=== PATIENT | female | born 1960 | race Caucasian/White ===

== ENCOUNTER 2016-11-20 18:32 | Emergency (ER) | payer MEDICAID ==
[~2016-11-20] VITALS: Ht 149.9 cm; Wt 55.0 kg
[2016-11-20 18:32] VITALS: BP 109/77; PULSE 60; RESP 18; TEMP 97.7; O2SAT 95
[~2016-11-20 18:32] MED LIST: CELE40TA PO; DICL75 PO; METO50TA PO; PENI500T PO
[2016-11-20] MEDS ORDERED: METO50TA PO (19:33)
--- NOTE | 2016-11-20 19:58 | RADRPT ---
EXAM DATE/TIME: 11/20/2016 19:58 [facility] COMPARISON: No previous studies available for comparison. INDICATIONS : Right forearm pain, fell MEDICAL HISTORY : None. SURGICAL HISTORY : None. ENCOUNTER: Initial ACUITY: 1 day PAIN SCORE: 10/10 LOCATION: Left Forearm FINDINGS: There is no acute fracture or subluxation of the right radius or ulna. On old fracture is seen of the ulnar styloid. Soft tissues are within normal limits. No radiopaque foreign body. CONCLUSION: No acute bony normality. Old ulnar styloid fracture. Justin Hall MD on November 20, 2016 at 19:55 Board Certified Radiologist. This report was verified electronically.
[2016-11-20] MEDS ORDERED: IBUP800T23 PO (20:35)
[2016-11-20] MEDS ORDERED: HYDR-3533 PO (20:53)
--- NOTE | 2016-11-20 20:53 | PD ---
HPI Chief Complaint: Fall Time Seen by Provider: 20:43 Travel History International Travel<30 days: No Contact w/Intl Traveler<30days: No Traveled to known affect area: No History of Present Illness HPI 56-year-old [id number] white female presents to emergency department for evaluation of right arm pain after a fall. She states that she had fallen several hours ago onto her right elbow. She states that she had pain in the elbow initially but now is radiating up into her wrist and thumb. She denies any numbness, tingling. She states that she feels weak because of pain. When she fell she did scrape her right knee. No neck or back pain. No other injuries. PFSH Past Medical History Arthritis: Yes Autoimmune Disease: Yes (NATHANIEL) Cardiovascular Problems: Yes (HTN) Hypertension: Yes Tetanus Vaccination: Unknown ?: Not Social History Alcohol Use: No Tobacco Use: No Substance Use: No Allergies-Medications (Allergen,Severity, Reaction): Coded Allergies: Sulfa (Verified Allergy, Severe, RASH, 11/20/16) Reported Meds & Prescriptions Reported Meds & Active Scripts Active Ibuprofen 800 Mg Tab 800 Mg PO Q8H PRN Reported Metoprolol Tartrate 50 Mg Tab 50 Mg PO BID Review of Systems Except as stated in HPI: all other systems reviewed are Neg General / Constitutional: No: Fever, Chills Eyes: No: Blurred Vision, Photophobia HENT: No: Headaches, Sore Throat Cardiovascular: No: Chest Pain or Discomfort, Palpitations Respiratory: No: Cough, Shortness of Breath Gastrointestinal: No: Nausea, Vomiting Genitourinary: No: Urgency, Frequency, Dysuria Musculoskeletal: Positive: Myalgias (no known for emergencies or 11 blade 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 seeming no time in time and have her) , Arthralgias, Limited ROM, Weakness, Pain Skin: No Rash, No Itching Physical Exam Narrative GENERAL: Well-developed, well-nourished in no apparent distress. Nontoxic appearing. HEAD: Normocephalic, atraumatic. EYES: Pupils equal round and reactive. Extraocular motions intact. No scleral icterus. No injection or drainage. ENT: Nose clear. Throat without erythema, tonsillar hypertrophy or exudate. Uvula midline. Airway patent. NECK: Trachea midline. Supple, nontender, moves head freely. No central bony tenderness or spasm. CARDIOVASCULAR: Regular rate and rhythm without murmurs, gallops, or rubs. RESPIRATORY: Clear to auscultation. Breath sounds equal bilaterally. No wheezes , rales, or rhonchi. GASTROINTESTINAL: Abdomen soft, non-tender, nondistended. No hepato-splenomegaly , or palpable masses. No guarding. EXTREMITIES: No clubbing, cyanosis. Examination of the right upper extremity reveals pain in the elbow at the area of the radius. She has significant decreased range of motion, global pain and swelling. She is unable to fully extend or fully flex her elbow. She has pain with supination and pronation. She has radiation of pain down the forearm to the wrist. There is tenderness over the distal radius and ulna. No anatomical snuffbox tenderness. Some pain down into the thumb. She has intact gross sensation and good pulses. The left upper extremity is unremarkable. The left lower extremity is unremarkable. The right lower extremity has an abrasion over the patella and some crepitus with movement but no instability. BACK: Nontender without deformity. No flank tenderness. NEUROLOGICAL: Awake, alert and oriented x 3 .Cranial nerves grossly intact. Motor and sensory grossly within normal limits. Normal speech. Data Data Last Documented VS Vital Signs Date Time Temp Pulse Resp B/P Pulse Ox O2 Delivery O2 Flow Rate FiO2 11/20/16 18:32 97.7 60 18 109/77 95 Room Air Orders Forearm (2vws) (11/20/16 19:35) Splint Or Brace Apply/Monitor (11/20/16 20:33) [facility] Medical Decision Making Medical Screen Exam Complete: Yes Emergency Medical Condition: Yes Medical Record Reviewed: Yes Interpretation(s) Last 24 hours Impressions Radius/Ulna X-Ray 11/20/161934 Signed Impressions: Service Date/Time: Sunday, November 20, 2016 19:58 - CONCLUSION: No acute bony normality. Old ulnar styloid fracture. Justin Hall MD Differential Diagnosis MDM: High Differential diagnoses: Fracture, sprain, strain, dislocation, contusion, neurovascular injury Narrative Course X-ray of the right elbow reveals a positive fat pad signs I suspect she has a radial head fracture which is nonvisualized. The radiologist has read the x- ray is negative. This is right radial head fracture Patient given Motrin 800 and Lortab 5 mg by mouth. Sling. Diagnosis Primary Impression: Right radial head fracture Qualified Code: S52.124A - Closed nondisplaced fracture of head of right radius, initial encounter Patient Instructions: General Instructions, Narcotic given in the ED Additional Instructions: Rest. Sling. Ice. Motrin and Lortab. Follow-up with your doctor in the next 2-3 days. Follow-up with an orthopedist within 1 week. Med/Other Pt SpecificInfo: Prescription(s) given Scripts Ibuprofen 800 Mg Ned615 Mg PO Q8H PRN (Pain/Inflammation) #30 TAB Prov:Vinod Damon MD 11/20/16 Disposition: 01 DISCHARGE HOME Condition: Stable Oj Deutsch Nov 20, 2016 20:53
[2016-11-20] MEDS ORDERED: IBUPROFEN 800 MG TAB PO ONE (21:00)
[2016-11-20] MEDS ORDERED: ACETAMINOPHEN/HYDROcodone 325 MG/5 MG TAB PO ONE (21:00)
== END 2016-11-20 21:13 | disposition home or self-care (01) ==
LOC: NEPB 18:32
DX: S52.121A Displaced fracture of head of right radius, initial encounter for closed fracture (principal); I10 Essential (primary) hypertension; W19.XXXA Unspecified fall, initial encounter
CPT/HCPCS: 73090; 99284

== ENCOUNTER 2017-12-11 19:26 | Emergency (ER) | payer MEDICAID ==
[~2017-12-11] VITALS: Ht 152.4 cm; Wt 66.0 kg
[~2017-12-11 19:26] MED LIST changes: -CELE40TA PO; -DICL75 PO; +HYDR-3533 PO; +IBUP1TAB7 PO; -PENI500T PO
[2017-12-11 19:49] VITALS: PULSE 68; RESP 22; TEMP 97.7; O2SAT 96
--- NOTE | 2017-12-11 20:02 | PD ---
HPI Chief Complaint: Chest Pain Time Seen by Provider: 20:00 Travel History International Travel<30 days: No Contact w/Intl Traveler<30days: No Traveled to known affect area: No History of Present Illness HPI Over the past 4 days patient has had progressive shortness of breath, midsternal chest discomfort, nonradiating, rates it at about a 6 out of 10 described as sharp. No alleviating factors however is aggravated by movement and taking deep breaths. Patient denies any associated factors such as fever, headache, back pain, abdominal pain, nausea, vomiting, diarrhea. Primary care is Dr. Belcher Patient states allergies to sulfa Past medical history significant for previous hypertension bronchitis unknown if this is a COPD subtype or just an intermittent. Hypertension, hiatal hernia , lupus, states that she has bad knees and uses a cane to ambulate around. PFSH Past Medical History Arthritis: Yes Autoimmune Disease: Yes (NATHANIEL) Cardiovascular Problems: Yes (HTN) Cerebrovascular Accident: Yes Diminished Hearing: No Hiatal Hernia: Yes Hypertension: Yes Respiratory: Yes (bronchitis) Influenza Vaccination: No ?: Unknown Menopausal: Yes : 1 Para: 1 Past Surgical History Surgical History: No Previous Surgery Social History Alcohol Use: No Tobacco Use: No Substance Use: No Allergies-Medications (Allergen,Severity, Reaction): Coded Allergies: Sulfa (Sulfonamide Antibiotics) (Unverified Allergy, Severe, RASH, 05/15/17 ) Reported Meds & Prescriptions Reported Meds & Active Scripts Active Reported Gabapentin 600 Mg Tab 600 Mg PO TID Xanax (Alprazolam) 0.5 Mg Tab 0.5 Mg PO Q8H PRN Zantac (Ranitidine HCl) 150 Mg Tab 150 Mg PO DAILY Citalopram (Citalopram Hydrobromide) 40 Mg Tab 40 Mg PO DAILY Topiramate ER (Topiramate) 50 Mg Cap 50 Mg PO DAILY Metoprolol Tartrate 50 Mg Tab 50 Mg PO BID Review of Systems General / Constitutional: No: Fever Eyes: No: Visual changes HENT: No: Headaches Cardiovascular: Positive: Chest Pain or Discomfort Respiratory: Positive: Shortness of Breath Gastrointestinal: No: Abdominal Pain Genitourinary: No: Dysuria Musculoskeletal: No: Pain Skin: No Rash Neurologic: No: Weakness Psychiatric: No: Depression Endocrine: No: Polydipsia Hematologic/Lymphatic: No: Easy Bruising Physical Exam Narrative GENERAL: SKIN: Warm and dry. HEAD: Atraumatic. Normocephalic. EYES: Pupils equal and round. No scleral icterus. No injection or drainage. ENT: No nasal bleeding or discharge. Mucous membranes pink and moist. NECK: Trachea midline. No JVD. CARDIOVASCULAR: Regular rate and rhythm. RESPIRATORY: No accessory muscle use. Clear to auscultation. But patient has a croupy type cough. With some stridor with activity. No stridor at rest, no nasal flaring, no tripoding. GASTROINTESTINAL: Abdomen soft, non-tender, nondistended. MUSCULOSKELETAL: Extremities without clubbing, cyanosis, or edema. No obvious deformities. Reproducible chest wall pain on palpation NEUROLOGICAL: Awake and alert. No obvious cranial nerve deficits. Motor grossly within normal limits. Five out of 5 muscle strength in the arms and legs. Normal speech. PSYCHIATRIC: Appropriate mood and affect; insight and judgment normal. Data Data Last Documented VS Vital Signs Date Time Temp Pulse Resp B/P (MAP) Pulse Ox O2 Delivery O2 Flow Rate FiO2 12/11/17 21:26 98.0 69 18 101/68 (79) 96 Room Air Orders Orders Electrocardiogram (12/11/17 ) Ckmb (Isoenzyme) Profile (12/11/17 19:43) Complete Blood Count With Diff (12/11/17 19:43) Comprehensive Metabolic Panel (12/11/17 19:43) Magnesium (Mg) (12/11/17 19:43) Prothrombin Time / Inr (Pt) (12/11/17 19:43) Act Partial Throm Time (Ptt) (12/11/17 19:43) Troponin I (12/11/17 19:43) Lipase (12/11/17 19:43) Chest, Pa & Lat (12/11/17 19:43) Racemic Epinephrine 2.25% Neb (Racepinep (12/11/17 20:45) Methylprednisolone So Succ Inj (Solumedr (12/11/17 20:45) Influenzae A/B Antigen (12/11/17 20:35) Sodium Chlor 0.9% 1000 Ml Inj (Ns 1000 M (12/11/17 21:28) Sodium Chlor 0.9% 1000 Ml Inj (Ns 1000 M (12/11/17 22:15) Labs Laboratory Tests Test 12/11/17 20:00 White Blood Count 4.4 TH/MM3 Red Blood Count 4.56 MIL/MM3 Hemoglobin 13.8 GM/DL Hematocrit 41.4 % Mean Corpuscular Volume 90.8 FL Mean Corpuscular Hemoglobin 30.3 PG Mean Corpuscular Hemoglobin Concent 33.4 % Red Cell Distribution Width 13.8 % Platelet Count 177 TH/MM3 Mean Platelet Volume 7.7 FL Neutrophils (%) (Auto) 58.4 % Lymphocytes (%) (Auto) 26.5 % Monocytes (%) (Auto) 14.0 % Eosinophils (%) (Auto) 0.3 % Basophils (%) (Auto) 0.8 % Neutrophils # (Auto) 2.6 TH/MM3 Lymphocytes # (Auto) 1.2 TH/MM3 Monocytes # (Auto) 0.6 TH/MM3 Eosinophils # (Auto) 0.0 TH/MM3 Basophils # (Auto) 0.0 TH/MM3 CBC Comment DIFF FINAL Differential Comment Prothrombin Time 10.1 SEC Prothromb Time International Ratio 1.0 RATIO Activated Partial Thromboplast Time 27.3 SEC Blood Urea Nitrogen 16 MG/DL Creatinine 1.24 MG/DL Random Glucose 83 MG/DL Total Protein 8.2 GM/DL Albumin 4.0 GM/DL Calcium Level 8.7 MG/DL Magnesium Level 2.1 MG/DL Alkaline Phosphatase 61 U/L Aspartate Amino Transf (AST/SGOT) 21 U/L Alanine Aminotransferase (ALT/SGPT) 25 U/L Total Bilirubin 0.3 MG/DL Sodium Level 129 MEQ/L Potassium Level 3.1 MEQ/L Chloride Level 97 MEQ/L Carbon Dioxide Level 24.6 MEQ/L Anion Gap 7 MEQ/L Estimat Glomerular Filtration Rate 44 ML/MIN Total Creatine Kinase 54 U/L Troponin I LESS THAN 0.02 NG/ML Lipase 173 U/L MDM Medical Decision Making Medical Screen Exam Complete: Yes Emergency Medical Condition: Yes Medical Record Reviewed: Yes Interpretation(s) EKG shows a normal sinus rhythm, 62 bpm, the pattern is most consistent with little bit of pulmonary disease with a small P pulmonale noted. No evidence of any STEMI pattern noted. Differential Diagnosis WA versus non-STEMI versus pneumonia versus clubbing, bronchitis versus flu Narrative Course Patient has CBC shows no leukocytosis, normal no anemia, normal platelet count, no left shift. Coagulation profile is within normal limits Electrolytes shows slight hyponatremia 129, mild hypo-kalemia 3.1, prerenal azotemia with creatinine of 1.24 and a GFR of 44. However normal LFTs normal lipase and normal troponin as well as normal total CPK. Negative flu Chest x-ray was read as no evidence of acute cardiopulmonary disease by radiologist. Patient feels much better after receiving racemic epi, as her cough sounded more similar to croup rather than that of pneumonia. However she also had in addition to stridor she had wheezing. Which makes it likely that there is also not only upper airway but also lower airway disease. Of particular note the patient has no hypoxemia, has excellent Pleth wave, 99% on room air which is considered absolutely normal for pulse ox on room air. Respiratory rate was not elevated at between 12-14, heart rate was 75, and blood pressure was 141/81. Patient is in no acute respiratory distress and will be discharged after treatment Diagnosis Primary Impression: CLINICAL BRONCHITIS Additional Impression: Hyponatremia Patient Instructions: Acute Bronchitis (ED), General Instructions Scripts Albuterol 6.7 GM Inh (Proventil Hfa 6.7 GM Inh) 90 Mcg/Act Aer 2 PUFF INH Q4-6H Y for SHORTNESS OF BREATH, #1 INHALER 0 Refills Prov: Bolivar Torres MD 12/11/17 Guaifenesin-Codeine Liq (Guaifenesin AC Liq) 100-10 Mg/5 Ml Syrp 10 ML PO Q4H Y for COUGH, #180 BOTTLE 0 Refills Prov: Bolivar Torres MD 12/11/17 Ciprofloxacin (Cipro) 500 Mg Tab 500 MG PO BID for Infection for 5 Days, #10 TAB 0 Refills Prov: Bolivar Torres MD 12/11/17 Disposition: 01 DISCHARGE HOME Condition: Stable Bolivar Torres MD Dec 11, 2017 20:02
[2017-12-11] MEDS ORDERED: CITA40TA4 PO (20:03)
[2017-12-11] MEDS ORDERED: ALPR.5 PO (20:03)
[2017-12-11] MEDS ORDERED: ZANT150T2 PO (20:03)
[2017-12-11] MEDS ORDERED: GABA600T PO (20:03)
[2017-12-11] MEDS ORDERED: TOPI1CAP18 PO (20:03)
[2017-12-11 20:34] LABS: AUTOMATED NEUTROPHIL # 2.6 TH/MM3 (1.8-7.7); BASOPHIL % 0.8 % (0.0-2.0); EOSINOPHIL % 0.3 % (0.0-4.0); HEMATOCRIT 41.4 % (35.0-46.0); HEMOGLOBIN 13.8 GM/DL (11.6-15.3); LYMPH % 26.5 % (9.0-44.0); LYMPHOCYTE # 1.2 TH/MM3 (1.0-4.8); MEAN CELL VOLUME 90.8 FL (80.0-100.0); MEAN CORPUSCULAR HEMOGLOBIN 30.3 PG (27.0-34.0); MEAN CORPUSCULAR HGB CONC 33.4 % (32.0-36.0); MEAN PLATELET VOLUME 7.7 FL (7.0-11.0); MONOCYTE # 0.6 TH/MM3 (0-0.9); NEUT % 58.4 % (16.0-70.0); PLATELET COUNT 177 TH/MM3 (150-450); RED BLOOD COUNT 4.56 MIL/MM3 (4.00-5.30); RED CELL DISTRIBUTION WIDTH 13.8 % (11.6-17.2); WHITE BLOOD COUNT 4.4 TH/MM3 (4.0-11.0)
[2017-12-11 20:36] LABS: AST (GOT) 21 U/L (15-37); BICARBONATE 24.6 MEQ/L (21.0-32.0); BLOOD UREA NITROGEN 16 MG/DL (7-18); CALCIUM 8.7 MG/DL (8.5-10.1); CHLORIDE 97 MEQ/L (98-107); CREATININE 1.24 MG/DL (0.50-1.00); GLOMERULAR FILTRATION RATE 44 ML/MIN (>89); GLUCOSE,RANDOM 83 MG/DL (74-106); MAGNESIUM 2.1 MG/DL (1.5-2.5); PROTHROMBIN TIME - PATIENT 10.1 SEC (9.8-11.6); SODIUM (NA) 129 MEQ/L (136-145)
[2017-12-11 20:38] LABS: ALT (GPT) 25 U/L (10-53)
[2017-12-11 20:42] LABS: ALKALINE PHOSPHATASE 61 U/L (45-117); TOTAL BILIRUBIN ADULT 0.3 MG/DL (0.2-1.0); TOTAL PROTEIN 8.2 GM/DL (6.4-8.2); TROPONIN I LESS THAN 0.02 NG/ML (0.02-0.05)
[2017-12-11] MEDS ORDERED: RESP: RACEPINEPHRINE 2.25% 0.5 ML NEB NEB ONE (20:45)
[2017-12-11] MEDS ORDERED: methylPREDNISolone SOD SUCC 125 MG/2 ML VIAL IV PUSH ONE (20:45)
--- NOTE | 2017-12-11 21:08 | RADRPT ---
EXAM DATE/TIME: 12/11/2017 20:40 [facility] COMPARISON: No previous studies available for comparison. INDICATIONS : Chest pain and cough. MEDICAL HISTORY : None. SURGICAL HISTORY : None. ENCOUNTER: Initial ACUITY: 1 day PAIN SCORE: 5/10 LOCATION: Bilateral chest FINDINGS: PA and lateral views of the chest demonstrate the lungs to be symmetrically aerated without evidence of mass, infiltrate or effusion. The cardiomediastinal contours are unremarkable. Osseous structure s are intact. CONCLUSION: No evidence of acute cardiopulmonary disease. Justin Hall MD on December 11, 2017 at 21:06 Board Certified Radiologist. This report was verified electronically.
[2017-12-11 21:26] VITALS: BP 101/68; PULSE 69; RESP 18; TEMP 98; O2SAT 96
[2017-12-11] MEDS ORDERED: SODIUM CHLOR 0.9% 1000 ML INJ 1,000 ML IV SCH (21:28)
[2017-12-11] MEDS ORDERED: SODIUM CHLOR 0.9% 1000 ML INJ 1,000 ML IV ONE (22:15)
[2017-12-11] MEDS ORDERED: CIPR-9 PO (23:15)
[2017-12-11] MEDS ORDERED: ALBU6.7H INH (23:15)
[2017-12-11] MEDS ORDERED: GUAISYP4 PO (23:15)
[2017-12-11 23:45] VITALS: BP 122/76; PULSE 76; RESP 20; TEMP 98.4; O2SAT 98
--- NOTE | 2017-12-12 23:35 | EKG ---
Date Performed: 12/11/2017 Time Performed: 19:53:16 PTAGE: 57 years EKG: Sinus rhythm LOW QRS VOLTAGE PATTERN CONSISTENT WITH PULMONARY DISEASE ABNORMAL ECG NO PREVIOUS TRACING DOCTOR: Sim Seaman Interpretating Date/Time 12/12/2017 23:32:37
== END 2017-12-12 00:51 | disposition home or self-care (01) ==
LOC: NEPE 19:26
DX: J40 Bronchitis, not specified as acute or chronic (principal); E87.1 Hypo-osmolality and hyponatremia; I10 Essential (primary) hypertension; Z79.899 Other long term (current) drug therapy
CPT/HCPCS: 71046; 80053; 82550; 83690; 83735; 84484; 85025; 85610; 85730; 87804; 93005; 94664; 96361; 96374; 99285; J2930; J7030

== ENCOUNTER → 2018-01-04 | Outpatient (CLI) | payer MEDICAID ==
[~2018-01-04] MED LIST changes: +ALBU6.7H INH; +ALPR.5 PO; +CIPR-9 PO; +CITA40TA4 PO; +GABA600T PO; +GUAISYP4 PO; -HYDR-3533 PO; -IBUP1TAB7 PO; +TOPI1CAP18 PO; +ZANT150T2 PO
--- NOTE | 2018-01-04 10:55 | RADRPT ---
EXAM DATE/TIME: 01/04/2018 00:00 [facility] COMPARISON: No previous studies available for comparison. INDICATIONS : Dysphagia for one year, recently had Heimlich maneuver performed to dislodge a piece of steak FLUORO TIME: 1.1 minutes IMAGE COUNT: 0 CONTRAST: Dose as prescribed by speech pathologist. MEDICAL HISTORY : dysphagia, memory problems SURGICAL HISTORY : None. ENCOUNTER: Initial ACUITY: 1 year PAIN SCORE: 0/10 LOCATION: Bilateral esophagus FINDINGS: A modified barium swallow was performed with speech pathology. Patient was given a variety of liquids to swallow. No episodes of aspiration observed. For a full detailed report, see report by the speech pathologist. CONCLUSION: No aspiration seen. Maik Medina MD on January 04, 2018 at 10:53 Board Certified Radiologist. This report was verified electronically.
== END ==
LOC: HRAD 10:09
DX: R13.19 Other dysphagia (principal)
CPT/HCPCS: 74230; 92611; G8996; G8997; G8998

== ENCOUNTER 2018-03-05 22:46 | Emergency (ER) | payer MEDICAID ==
[~2018-03-05] VITALS: Ht 152.4 cm; Wt 100.0 kg
[2018-03-05 23:29] VITALS: BP 136/77; PULSE 72; RESP 18; TEMP 98.2; O2SAT 95
[2018-03-06] MEDS ORDERED: SODIUM CHLOR 0.9% 1000 ML INJ 1,000 ML IV SCH (00:49)
--- NOTE | 2018-03-06 00:55 | PD ---
HPI Chief Complaint: Abdominal Pain Time Seen by Provider: 00:49 Travel History International Travel<30 days: No Contact w/Intl Traveler<30days: No Traveled to known affect area: No History of Present Illness HPI The patient is a 57-year-old female who presents to the emergency department for abdominal pain and weight gain. The patient states she is gained approximately 40 pounds over the last several months, however, she states she has had decreased appetite and oral intake. The patient states she normally weighs 115 pounds and currently weighs 150 pounds. The patient does note some chronic abdominal pain located in epigastrium and right upper quadrant. She is followed by her resident care director who is located in [place], [place]. The patient states she has had multiple tests including endoscopy which were -2 months ago. She denies any significant vomiting, diarrhea, or constipation. She denies any dysuria. The pain is epigastrium to right upper quadrant radiates around the back. Symptoms are moderate. She denies any fever, chills, or sweats. PFSH Past Medical History Arthritis: Yes Autoimmune Disease: Yes (NATHANIEL) Cardiovascular Problems: Yes (HTN) Cerebrovascular Accident: Yes Diminished Hearing: No Hiatal Hernia: Yes Hypertension: Yes Respiratory: Yes (bronchitis) Menopausal: Yes : 1 Para: 1 Past Surgical History Narrative Surgical Endoscopy and colonoscopy Social History Alcohol Use: No Tobacco Use: No Substance Use: No Allergies-Medications (Allergen,Severity, Reaction): Coded Allergies: Sulfa (Sulfonamide Antibiotics) (Unverified Allergy, Severe, RASH, 03/05/18) Reported Meds & Prescriptions Reported Meds & Active Scripts Active Proventil Hfa 6.7 GM Inh (Albuterol Sulfate) 90 Mcg/Act Aer 2 Puff INH Q4-6H PRN Guaifenesin AC Liq (Guaifenesin-Codeine Liq) 100-10 Mg/5 Ml Syrp 10 Ml PO Q4H PRN Cipro (Ciprofloxacin HCl) 500 Mg Tab 500 Mg PO BID 5 Days Reported Gabapentin 600 Mg Tab 600 Mg PO TID Xanax (Alprazolam) 0.5 Mg Tab 0.5 Mg PO Q8H PRN Zantac (Ranitidine HCl) 150 Mg Tab 150 Mg PO DAILY Citalopram (Citalopram Hydrobromide) 40 Mg Tab 40 Mg PO DAILY Topiramate ER (Topiramate) 50 Mg Cap 50 Mg PO DAILY Metoprolol Tartrate 50 Mg Tab 50 Mg PO BID Review of Systems Except as stated in HPI: all other systems reviewed are Neg General / Constitutional: No: Fever Cardiovascular: No: Chest Pain or Discomfort Respiratory: No: Shortness of Breath Gastrointestinal: Positive: Nausea, Abdominal Pain, No: Vomiting, Diarrhea, Constipation Genitourinary: No: Urgency, Frequency, Dysuria Neurologic: No: Dizziness Physical Exam Narrative GENERAL: Awake, alert, nontoxic-appearing 57-year-old female who appears her stated age and is in no acute respiratory distress. SKIN: Focused skin assessment warm/dry. HEAD: Atraumatic. Normocephalic. EYES: Pupils equal and round. No scleral icterus. No injection or drainage. ENT: No nasal bleeding or discharge. Mucous membranes pink and moist. NECK: Trachea midline. No JVD. CARDIOVASCULAR: Regular rate and rhythm. No murmur appreciated. RESPIRATORY: No accessory muscle use. Clear to auscultation. Breath sounds equal bilaterally. GASTROINTESTINAL: Abdomen soft, slightly tender to palpation epigastrium and right upper quadrant. No guarding or rigidity. MUSCULOSKELETAL: No obvious deformities. No clubbing. No cyanosis. No edema. NEUROLOGICAL: Awake and alert. No obvious cranial nerve deficits. Motor grossly within normal limits. Normal speech. PSYCHIATRIC: Appropriate mood and affect; insight and judgment normal. Data Data Last Documented VS Vital Signs Date Time Temp Pulse Resp B/P (MAP) Pulse Ox O2 Delivery O2 Flow Rate FiO2 03/06/18 00:51 Room Air 03/05/18 23:29 98.2 72 18 136/77 (96) 95 Orders Orders Complete Blood Count With Diff (03/06/18 00:49) Comprehensive Metabolic Panel (03/06/18 00:49) Lipase (03/06/18 00:49) Lactic Acid (03/06/18 00:49) Urinalysis - C+S If Indicated (03/06/18 00:49) Ct Abd/Pel W Iv Contrast(Rout) (03/06/18 00:49) Iv Access Insert/Monitor (03/06/18 00:49) Ecg Monitoring (03/06/18 00:49) Oximetry (03/06/18 00:49) Morphine Inj (Morphine Inj) (03/06/18 01:00) Sodium Chlor 0.9% 1000 Ml Inj (Ns 1000 M (03/06/18 00:49) Sodium Chloride 0.9% Flush (Ns Flush) (03/06/18 01:00) Ketorolac Inj (Toradol Inj) (03/06/18 01:00) Ondansetron Odt (Zofran Odt) (03/06/18 01:00) Iohexol 350 Inj (Omnipaque 350 Inj) (03/06/18 02:28) Urine Culture (03/06/18 02:36) Labs Laboratory Tests Test 03/06/18 01:11 03/06/18 02:36 White Blood Count 6.7 TH/MM3 Red Blood Count 4.35 MIL/MM3 Hemoglobin 13.2 GM/DL Hematocrit 39.2 % Mean Corpuscular Volume 90.2 FL Mean Corpuscular Hemoglobin 30.4 PG Mean Corpuscular Hemoglobin Concent 33.7 % Red Cell Distribution Width 13.8 % Platelet Count 229 TH/MM3 Mean Platelet Volume 7.7 FL Neutrophils (%) (Auto) 49.4 % Lymphocytes (%) (Auto) 40.6 % Monocytes (%) (Auto) 7.3 % Eosinophils (%) (Auto) 1.9 % Basophils (%) (Auto) 0.8 % Neutrophils # (Auto) 3.3 TH/MM3 Lymphocytes # (Auto) 2.7 TH/MM3 Monocytes # (Auto) 0.5 TH/MM3 Eosinophils # (Auto) 0.1 TH/MM3 Basophils # (Auto) 0.1 TH/MM3 CBC Comment DIFF FINAL Differential Comment Blood Urea Nitrogen 13 MG/DL Creatinine 1.12 MG/DL Random Glucose 105 MG/DL Total Protein 7.3 GM/DL Albumin 3.6 GM/DL Calcium Level 8.8 MG/DL Alkaline Phosphatase 71 U/L Aspartate Amino Transf (AST/SGOT) 15 U/L Alanine Aminotransferase (ALT/SGPT) 22 U/L Total Bilirubin 0.2 MG/DL Sodium Level 146 MEQ/L Potassium Level 3.5 MEQ/L Chloride Level 111 MEQ/L Carbon Dioxide Level 26.7 MEQ/L Anion Gap 8 MEQ/L Estimat Glomerular Filtration Rate 50 ML/MIN Lactic Acid Level 1.0 mmol/L Lipase 212 U/L Urine Color YELLOW Urine Turbidity HAZY Urine pH 6.5 Urine Specific [place] 1.025 Urine Protein TRACE mg/dL Urine Glucose (UA) NEG mg/dL Urine Ketones NEG mg/dL Urine Occult Blood TRACE Urine Nitrite NEG Urine Bilirubin NEG Urine Urobilinogen LESS THAN 2.0 MG/DL Urine Leukocyte Esterase LARGE Urine RBC 49 /hpf Urine WBC /hpf Urine Squamous Epithelial Cells 13 /hpf Urine Transitional Epithelial Cells <1 /hpf Urine Renal Epithelial Cells <1 /hpf Urine Amorphous Sediment RARE Urine Bacteria OCC /hpf Urine Hyaline Casts 107 /lpf Urine Mucus FEW /lpf Urine Trichomonas OCC Microscopic Urinalysis Comment CULTURE INDICATED MDM Medical Decision Making Medical Screen Exam Complete: Yes Emergency Medical Condition: Yes Medical Record Reviewed: Yes Interpretation(s) Last Impressions Abdomen/Pelvis CT 03/06/18 0049 Signed Impressions: CONCLUSION: 1. Unremarkable CT scan of the abdomen and pelvis. Laboratory Tests Test 03/06/18 01:11 03/06/18 02:36 White Blood Count 6.7 TH/MM3 Red Blood Count 4.35 MIL/MM3 Hemoglobin 13.2 GM/DL Hematocrit 39.2 % Mean Corpuscular Volume 90.2 FL Mean Corpuscular Hemoglobin 30.4 PG Mean Corpuscular Hemoglobin Concent 33.7 % Red Cell Distribution Width 13.8 % Platelet Count 229 TH/MM3 Mean Platelet Volume 7.7 FL Neutrophils (%) (Auto) 49.4 % Lymphocytes (%) (Auto) 40.6 % Monocytes (%) (Auto) 7.3 % Eosinophils (%) (Auto) 1.9 % Basophils (%) (Auto) 0.8 % Neutrophils # (Auto) 3.3 TH/MM3 Lymphocytes # (Auto) 2.7 TH/MM3 Monocytes # (Auto) 0.5 TH/MM3 Eosinophils # (Auto) 0.1 TH/MM3 Basophils # (Auto) 0.1 TH/MM3 CBC Comment DIFF FINAL Differential Comment Blood Urea Nitrogen 13 MG/DL Creatinine 1.12 MG/DL Random Glucose 105 MG/DL Total Protein 7.3 GM/DL Albumin 3.6 GM/DL Calcium Level 8.8 MG/DL Alkaline Phosphatase 71 U/L Aspartate Amino Transf (AST/SGOT) 15 U/L Alanine Aminotransferase (ALT/SGPT) 22 U/L Total Bilirubin 0.2 MG/DL Sodium Level 146 MEQ/L Potassium Level 3.5 MEQ/L Chloride Level 111 MEQ/L Carbon Dioxide Level 26.7 MEQ/L Anion Gap 8 MEQ/L Estimat Glomerular Filtration Rate 50 ML/MIN Lactic Acid Level 1.0 mmol/L Lipase 212 U/L Urine Color YELLOW Urine Turbidity HAZY Urine pH 6.5 Urine Specific [place] 1.025 Urine Protein TRACE mg/dL Urine Glucose (UA) NEG mg/dL Urine Ketones NEG mg/dL Urine Occult Blood TRACE Urine Nitrite NEG Urine Bilirubin NEG Urine Urobilinogen LESS THAN 2.0 MG/DL Urine Leukocyte Esterase LARGE Urine RBC 49 /hpf Urine WBC /hpf Urine Squamous Epithelial Cells 13 /hpf Urine Transitional Epithelial Cells <1 /hpf Urine Renal Epithelial Cells <1 /hpf Urine Amorphous Sediment RARE Urine Bacteria OCC /hpf Urine Hyaline Casts 107 /lpf Urine Mucus FEW /lpf Urine Trichomonas OCC Microscopic Urinalysis Comment CULTURE INDICATED Differential Diagnosis Differential diagnosis includes cholecystitis, choledocholithiasis, biliary colic, pancreatitis, peptic ulcer disease, gastritis, hydronephrosis, pyelonephritis, IBS, IBD. Narrative Course IV was established, labs are drawn and sent, and the patient was placed on cardiac telemetry monitoring and continuous pulse oximetry monitoring. The patient was administered morphine, Zofran, Toradol, and IV fluids. CT of the abdomen and pelvis with IV contrast was obtained. CT the abdomen and pelvis is unremarkable. The patient's UA does reveal innumerable WBCs consistent with UTI. Therefore, the patient was administered Cipro intravenously will be discharged home on Cipro. She is advised to follow-up with her primary physician. She will be provided a copy of her labs and CT results at discharge. Diagnosis Primary Impression: UTI (urinary tract infection) Qualified Codes: N30.01 - Acute cystitis with hematuria Additional Impression: Abdominal pain Qualified Codes: R10.10 - Upper abdominal pain, unspecified Patient Instructions: General Instructions Additional Instructions: Please provide the patient a copy of her CT results and lab results at discharge. Cipro as directed. Bentyl as needed. Follow-up with your resident care director. Med/Other Pt SpecificInfo: Prescription(s) given Scripts Dicyclomine (Bentyl) 10 Mg Cap 10 MG PO TID Y for Bowel Management, #12 CAP 0 Refills Prov: Lane Stevenson MD 03/06/18 Ciprofloxacin (Cipro) 500 Mg Tab 500 MG PO BID for Infection for 7 Days, #14 TAB 0 Refills Prov: Lane Stevenson MD 03/06/18 Disposition: 01 DISCHARGE HOME Condition: Stable Lane Stevenson MD Mar 06, 2018 00:55
[2018-03-06] MEDS ORDERED: MORPHINE SULFATE 4 MG/ML INJ IV PUSH ONE (01:00)
[2018-03-06] MEDS ORDERED: KETOROLAC TROMETHAMINE 30 MG/ML (IVP) VIAL IVP ONE (01:00)
[2018-03-06] MEDS ORDERED: ONDANSETRON ODT 4 MG TAB PO ONE (01:00)
[2018-03-06] MEDS ORDERED: SODIUM CHLORIDE 0.9% FLUSH 10 ML FLUSH IV FLUSH PRN (01:00)
[2018-03-06 01:47] LABS: AUTOMATED NEUTROPHIL # 3.3 TH/MM3 (1.8-7.7); BASOPHIL # 0.1 TH/MM3 (0-0.2); BASOPHIL % 0.8 % (0.0-2.0); EOSINOPHIL # 0.1 TH/MM3 (0-0.4); EOSINOPHIL % 1.9 % (0.0-4.0); HEMATOCRIT 39.2 % (35.0-46.0); HEMOGLOBIN 13.2 GM/DL (11.6-15.3); LYMPH % 40.6 % (9.0-44.0); LYMPHOCYTE # 2.7 TH/MM3 (1.0-4.8); MEAN CELL VOLUME 90.2 FL (80.0-100.0); MEAN CORPUSCULAR HEMOGLOBIN 30.4 PG (27.0-34.0); MEAN CORPUSCULAR HGB CONC 33.7 % (32.0-36.0); MEAN PLATELET VOLUME 7.7 FL (7.0-11.0); MONO % 7.3 % (0.0-8.0); MONOCYTE # 0.5 TH/MM3 (0-0.9); NEUT % 49.4 % (16.0-70.0); PLATELET COUNT 229 TH/MM3 (150-450); RED BLOOD COUNT 4.35 MIL/MM3 (4.00-5.30); RED CELL DISTRIBUTION WIDTH 13.8 % (11.6-17.2); WHITE BLOOD COUNT 6.7 TH/MM3 (4.0-11.0)
[2018-03-06 01:48] LABS: ALKALINE PHOSPHATASE 71 U/L (45-117); TOTAL BILIRUBIN ADULT 0.2 MG/DL (0.2-1.0); TOTAL PROTEIN 7.3 GM/DL (6.4-8.2)
[2018-03-06 01:51] LABS: ALBUMIN 3.6 GM/DL (3.4-5.0); ALT (GPT) 22 U/L (10-53); AST (GOT) 15 U/L (15-37); BICARBONATE 26.7 MEQ/L (21.0-32.0); BLOOD UREA NITROGEN 13 MG/DL (7-18); CALCIUM 8.8 MG/DL (8.5-10.1); CHLORIDE 111 MEQ/L (98-107); CREATININE 1.12 MG/DL (0.50-1.00); GLOMERULAR FILTRATION RATE 50 ML/MIN (>89); GLUCOSE,RANDOM 105 MG/DL (74-106); SODIUM (NA) 146 MEQ/L (136-145)
[2018-03-06] MEDS ORDERED: IOHEXOL 350 MG/ML 10 ML VIAL (for RAD DIAG) IVCONTRAST ONE (02:28)
--- NOTE | 2018-03-06 02:40 | RADRPT ---
EXAM DATE: 03/06/2018 2:31 AM EDT AGE/SEX: 57 years / Female INDICATIONS: Abdominal pain, distention, diarrhea. CLINICAL DATA: This is the patient's initial encounter. Patient reports that signs and symptoms have been present for 2 months and indicates a pain score of 10/10. MEDICAL/SURGICAL HISTORY: Hypertension. Cerebrovascular disease. Hiatal hernia. Lupus. None . ORAL CONTRAST: No oral contrast ingested. RADIATION DOSE: 6.64 CTDI (mGy) COMPARISON: No prior [facility] exams available for comparison. TECHNIQUE: Multiple contiguous axial images were obtained through the abdomen and pelvis following b olus infusion of 75 ml Omnipaque 350 (iohexol) nonionic water-soluble contrast as a single exam dos e. No oral contrast ingested. Using automated exposure control and adjustment of the mA and/or kV ac cording to patient size, the radiation dose was kept as low as reasonably achievable to obtain optima l diagnostic quality images. FINDINGS: Lower Lungs: The visualized lower lungs are clear. Liver: The liver has a homogeneous density without space-occupying lesion. There is no dilation of th e biliary tree. The gallbladder is contracted. Spleen: Homogeneous density without enlargement. Pancreas: Unremarkable without mass or calcification. Kidneys: Normal in size and shape. No evidence of mass or hydronephrosis. Adrenal Glands: Unremarkable. Aorta: The aorta and proximal iliac vessels are grossly unremarkable without aneurysmal dilation. Bowel/Mesentery: The bowel loops are grossly unremarkable. The cecum and sigmoid colon have a normal configuration. The appendix is unremarkable. No inflammatory changes. There is stool throughout the colon. Abdominal Wall: Intact. Retroperitoneum: No evidence of adenopathy in the retrocrural, para-aortic, or deep pelvic regions. Bladder: Contours are smooth. Reproductive Organs: No abnormal masses or calcifications seen. Inguinal: The inguinal region is unremarkable without evidence of adenopathy. Bony Structures: Primary bony degenerative changes. CONCLUSION: 1. Unremarkable CT scan of the abdomen and pelvis. Electronically signed by: Eric Buckley MD 03/06/2018 2:39 AM EDT
[2018-03-06 03:20] LABS: AMORPHOUS SEDIMENT, URINE RARE; BACTERIA, URINE OCC /hpf; BILIRUBIN, URINE NEG (NEG); BLOOD, URINE TRACE (NEG); GLUCOSE,URINE NEG (NEG); HYALINE CAST, URINE 107 /lpf (RARE); KETONE, URINE NEG (NEG); MUCUS URINE FEW /lpf (OCC); NITRITE,URINE NEG (NEG); PH, URINE 6.5 (5.0-8.5); RENAL EPITHELIAL CELLS <1 /hpf; SQUAMOUS EPITHELIAL CELL URINE 13 /hpf (0-5); TRANSITIONAL EPI CELLS, URINE <1 /hpf; TRICHOMONAS, URINE OCC; URINE COLOR YELLOW (YELLW/STRAW); URINE LEUKOCYTE ESTERASE LARGE (NEG)
[2018-03-06] MEDS ORDERED: DICY10 PO (03:29)
[2018-03-06] MEDS ORDERED: CIPR-9 PO (03:29)
[2018-03-06] MEDS ORDERED: CIPROFLOXACIN 400 MG PREMIX 200 ML IV ONE (03:30)
== END 2018-03-06 04:45 | disposition home or self-care (01) ==
LOC: NEPE 22:46
DX: N30.01 Acute cystitis with hematuria (principal); R10.10 Upper abdominal pain, unspecified; R63.5 Abnormal weight gain; I10 Essential (primary) hypertension; M32.9 Systemic lupus erythematosus, unspecified; M19.90 Unspecified osteoarthritis, unspecified site; Z86.73 Personal history of transient ischemic attack (TIA), and cerebral infarction without residual deficits
CPT/HCPCS: 74177; 80053; 81001; 83605; 83690; 85025; 87086; 96361; 96365; 96375; 99284; J0744; J1885; J2270; J7030; Q9967

== ENCOUNTER → 2018-03-18 | Outpatient (CLI) | payer MEDICAID ==
[~2018-03-18] MED LIST changes: +DICY10 PO; +SINCALIDE 5 MCG/5 ML VIAL IV ONE
--- NOTE | 2018-03-18 11:40 | RADRPT ---
EXAM DATE: 03/18/2018 11:24 AM EDT AGE/SEX: 58 years / Female INDICATIONS: Abdominal pain. CLINICAL DATA: This is the patient's initial encounter. Patient reports that signs and symptoms have been present for 3 days and indicates a pain score of 6/10. MEDICAL/SURGICAL HISTORY: Lupus. Hypertension. Hiatal hernia. Stroke. None. COMPARISON: [facility] – [place], CT ABDOMEN & PELVIS W CONTRAST, 03/06/2018. . DOSE: 4.3 mCi Tc-99m mebrofenin i.v. Medication: 1.3 mcg Cholecystokinin IV No symptomatic response Cholecystokinin was administered by slow infusion over 8 minutes beginning at Frame 60 mi nutes. TECHNIQUE: Following the intravenous administration of radiotracer, dynamic sequential images were pe rformed with continuous acquisition. Time-activity curves were generated. FINDINGS: Hepatic Kinetics: There is prompt uptake of radiotracer in the liver. No focal defects are seen. Ther e is normal rate of washout from the hepatic parenchyma. Biliary Clearance: Activity is first seen in the extrahepatic biliary system at 10 minutes. There is normal excretion into the small bowel. Gallbladder: Activity is first seen in the gallbladder at 15 minutes. Post-CCK: After CCK administration, there is emptying of the gallbladder with a 90% ejection fraction . Common bile duct kinetics are normal and there is no evidence of biliary obstruction. No symptomat ic response after cholecystokinin infusion. Biliary-Enteric Reflux: None observed. CONCLUSION: Negative HIDA scan. Electronically signed by: Justin Reilly MD 03/18/2018 11:38 AM EDT
== END ==
LOC: HRAD 08:37
DX: R10.11 Right upper quadrant pain (principal)
CPT/HCPCS: 78227; A9537; J2805